=== PATIENT | female | born 1980 | race Caucasian/White ===

== ENCOUNTER 2016-07-29 09:00 | Outpatient (RCR) | payer OTHER | END 2016-08-06 | disposition home or self-care (01) | LOC: WSOT | DX: M77.11 Lateral epicondylitis, right elbow (principal) ==

== ENCOUNTER → 2021-03-25 | Outpatient (CLI) | payer BC | LOC: COL.RAD 11:04 | DX: N92.1 Excessive and frequent menstruation with irregular cycle (principal) ==